=== PATIENT | female | born 2005 | race Two or more races ===

== ENCOUNTER 2024-04-26 13:59 | Emergency (ER) | payer MEDICAID ==
[~2024-04-26] VITALS: Ht 167.6 cm; Wt 65.0 kg
[~2024-04-26 13:59] MED LIST: IBUP-2766 PO
[2024-04-26 14:01] VITALS: TEMP 98.6
[2024-04-26] MEDS: LORazepam 1 MG tablet PO ONE (14:07)
[2024-04-26 14:30] VITALS: BP 132/75; PULSE 76; RESP 16; O2SAT 100
== END 2024-04-26 14:38 | disposition home or self-care (01) ==
LOC: ER 13:59
DX: F41.0 Panic disorder [episodic paroxysmal anxiety] (principal); F41.9 Anxiety disorder, unspecified; Z79.1 Long term (current) use of non-steroidal anti-inflammatories (NSAID)
CPT/HCPCS: 99283

== ENCOUNTER 2025-03-24 09:19 | Emergency (ER) | payer MEDICAID ==
[~2025-03-24] VITALS: Ht 167.6 cm; Wt 78.6 kg
[2025-03-24 09:20] VITALS: BP 118/64; PULSE 91; RESP 16; O2SAT 97
[2025-03-24 09:38] LABS: URINE HCG NEGATIVE (NEG)
[2025-03-24 09:43] LABS: LEUKOCYTE ESTERASE ,URINE SMALL (Neg); NITRITES, URINE NEGATIVE (Neg); OCCULT BLOOD,URINE MODERATE (Neg)
[2025-03-24 09:47] LABS: UA COLLECTION TYPE CLN CATCH MIDSTREAM
[2025-03-24 09:49] LABS: MUCUS STRANDS NONE SEEN /LPF (Neg); SQUAMOUS EPITHELIAL CELL,UR MANY /LPF (FEW)
--- NOTE | 2025-03-24 11:10 | Physician Documentation ---
History of Present Illness ~ Chief Complaint: Urinary Symptoms Stated Complaint: FLANK PAIN Time Seen by MD: 10:18 OK to notify your PCP?: Yes Primary Medical Doctor: CHARI DOESN'T RECALL Source: patient Mode of Arrival: POV Exam Limitations: no limitations HPI 19 y/o female with c/o pain with urination along with flank pain x several days. Flank pain intermittent. No pre-arrival treatment. No blood in urine, fever, chills, nausea, vomiting, vaginal complaints. Medication Reconciliation Allergies: Coded Allergies: No Known Allergies (Unverified , 04/26/24) Scheduled Ibuprofen 100MG/5ML Susp* (Motrin 100 MG/5ML Susp.*), 13 ML PO TID Past Medical History Past Medical History: No Pertinent History Lives with: Family Lives In: Home Occupation: child Review of Systems All Other Systems at this time: Reviewed and Negative Physical Exam Vital Signs: Temperature: 98.4, Source: Oral, Heart Rate: 91, Respiratory Rate: 16, BP: 118/64, Pulse Oximetry: 97, Weight: 78.600 Oxygen Flow Rate: 0 Physical Exam General Appearance: Alert, WD/WN. NAD. HEENT: NCAT, PERRL, EOMI. Neck: Supple, trachea midline. Cardiovascular: RRR. No m/r/g. Lungs: CTAB. Breathing unlabored ABD: SOFT, NDNT, NO CVA TTP. Extremities: Normal inspection. No edema. Skin: Warm/dry, normal color Neurological: Alert and oriented x4, normal gait. Psychiatric: Affect congruent with mood. Progress Results/Orders Results/Orders Orders - MADHU THOMAS Cult Urine + [address] (03/24/25 11:19) Completed Orders - MADHU THOMAS Ua W/Microscopic, Cult If Ind (03/24/25 10:55) Vital Signs 03/24/25 09:20 Temp 98.4 Pulse 91 Resp 16 B/P (MAP) 118/64 Pulse Ox 97 O2 Flow Rate 0 Laboratory Tests Test 03/24/25 09:24 03/24/25 10:55 Urine Specimen Description Cln catch midstream Cln catch midstream Urine Color Yellow Yellow Urine Clarity Slightly cloudy Slightly cloudy Urine pH 7.0 7.0 Urine Specific [place] 1.020 1.020 Urine Protein Negative Negative Urine Glucose (UA) Negative Negative Urine Ketones Negative Negative Urine Occult Blood Moderate H Moderate H Urine Nitrite Negative Negative Urine Bilirubin Negative Negative Urine Urobilinogen 0.2 0.2 Urine Leukocyte Esterase Small H Trace H Urine RBC 3-10 0-2 Urine WBC 20-30 H 5-10 H Urine Squamous Epithelial Cells Many Moderate Urine Transitional Epithelial Cells Few Urine Bacteria 2+ 1+ Urine Mucus None seen None seen Urine Culture Indicated Rejected for culture Indicated Volume Urine Centrifuged 10 ml 10 ml Urine HCG, Qualitative Negative Urine Comment Medical Decision Making Additional information obtaine: N/A Findings N/A Urinary Diff Dx:Considerations: Include: AAA, , Aortic dissection, Appendicitis, Bowel obstruction, Cholelithiasis, Choleangitis, DJD, Ectopic , Hepatitis, HNP, Impaction, Intrauterine , Musculoskeletal pain, Ovarian torsion, Pancreatitis, PID, Post-Op complication, Pyelonephritis, Renal failure, Strain, Urinary Obstruction, Urolithiasis, Urinary retention, UTI, Vaginitis; Unlikely: Other Genital Diff Dx:Considerations: Unlikely: Other Additional Comment NO CVA TTP ON EXAM, NO SYMPTOMS SUCH FEVER OR NAUSEA THAT WOULD BE CONSISTENT WITH PYELONEPHRITIS Departure Time of Disposition: 11:52 Disposition: 01 HOME / SELF CARE / HOMELESS Impression: Primary Impression: Acute urinary tract infection Discharge Instructions: Urinary Tract Infection, Adult Additional Instructions: URINE COLLECTED WAS POSITIVE FOR POSSIBLE INFECTION, THE CULTURE WILL BE THE CONFIRMATORY TEST BUT WON'T BE BACK FOR SEVERAL DAYS IF YOU ARE NOT IMPROVING, YOU NEED TO RETURN TO ER FOR RE-EVALUATION Referrals: NO PRIMARY CARE PROVIDER (PCP) Prescriptions Nitrofurantoin Monohyd/M-Cryst (Macrobid 100 mg Capsule) 100 Mg Capsule 1 CAP PO Q12H for 7 Days, #14 CAP 0 Refills Prov: MADHU THOMAS 03/24/25 Education Educated: Patient Educated regarding: diagnosis, treatment, need for follow up Signature Scribe Signature: x Attestation: MADHU Patel Mar 24, 2025 11:10
[2025-03-24 11:12] LABS: LEUKOCYTE ESTERASE ,URINE TRACE (Neg); NITRITES, URINE NEGATIVE (Neg); OCCULT BLOOD,URINE MODERATE (Neg); UA COLLECTION TYPE CLN CATCH MIDSTREAM
[2025-03-24 11:19] LABS: MUCUS STRANDS NONE SEEN /LPF (Neg); SQUAMOUS EPITHELIAL CELL,UR MODERATE /LPF (FEW)
[2025-03-24] MEDS ORDERED: NITR100C6 PO (11:51)
[2025-03-24 12:05] VITALS: TEMP 98.4
== END 2025-03-24 12:06 | disposition home or self-care (01) ==
LOC: ER 09:20
DX: N39.0 Urinary tract infection, site not specified (principal)
CPT/HCPCS: 81001; 81025; 87088; 99283